=== PATIENT | female | born 1990 | race American Indian/Alaskan Native ===

== ENCOUNTER 2017-05-23 01:00 | Emergency (ER) | payer SELFPAY ==
[2017-05-23 02:14] LABS: Basophils % (Auto) 0.5 % (0.0-1.8); Eosinophils % (Auto) 0.9 % (0.0-4.3); Hematocrit 41.2 % (30.3-42.9); Hemoglobin 13.5 gm/dl (10.1-14.3); Mean Corpuscular HGB Conc 33 % (30-34); Mean Corpuscular Hemoglobin 28 pg (28-32); Mean Corpuscular Volume 85 fl (79-97); Platelet Count 395 K/mm3 (140-440); Red Blood Count 4.83 M/mm3 (3.65-5.03); Red Cell Distribution Width 14.1 % (13.2-15.2); White Blood Count 12.2 K/mm3 (4.5-11.0)
[2017-05-23 02:26] LABS: Alanine Aminotransferase 22 units/L (7-56); Albumin 4.1 g/dL (3.9-5); Albumin/Globulin Ratio 1.1 %; Alkaline Phosphatase 79 units/L (35-129); Anion Gap 13 mmol/L; BUN/Creatinine Ratio 12.85; Blood Urea Nitrogen 9 mg/dL (7-17); Calcium 9.6 mg/dL (8.4-10.2); Carbon Dioxide 34 mmol/L (22-30); Chloride 94.4 mmol/L (98-107); Glucose 114 mg/dL (65-100); Sodium 138 mmol/L (137-145); Total Protein 7.9 g/dL (6.3-8.2)
[2017-05-23 06:01] LABS: Bilirubin,Urine Negative (Negative)
[2017-05-23 06:02] LABS: Bacteria,Urine 1+ /HPF (Negative); Blood,Urine 1+ (Negative); Ketones,Urine 40 mg/dL (Negative); Leukocyte Esterase,Urine Negative (Negative); Nitrite,Urine Negative (Negative)
[2017-05-23] MEDS ORDERED: PROTONIX PO ONE (09:08)
[2017-05-23] MEDS ORDERED: REGLAN PO ONE (09:08)
--- NOTE | 2017-05-23 09:18 | Emergency Department Report ---
ED N/V/D HPI - General Chief complaint: Abdominal Pain Stated complaint: VOMITING BLOOD Time Seen by Provider: 05/23/17 09:06 Source: patient Mode of arrival: Ambulatory Limitations: No Limitations - History of Present Illness Initial comments: 27-year-old female 3 para 2 last menstrual period 05/07/2017 is present to the emergency department complaining of nausea vomiting and abdominal pain. Patient states onset of symptoms started 1 week prior. Initially emesis was food particles. Patient states prior to arrival she had multiple episodes of emesis in the last episode she noticed there was blood streaked. Patient states was a minimal amount of blood. Patient was abdominal pain. Patient states the pain is located in the left upper quadrant and travels towards periumbilical area. Patient denies: fever/chills, chest pain, diarrhea, vaginal discharge, vaginal bleeding. MD complaint: nausea, vomiting -: Gradual, days(s) (7) Description of Vomiting: food contents, blood-streaked Associated Abdominal Pain: Yes Location: [place] Severity: mild Pain Scale: 1 Quality: cramping Consistency: intermittent Improves with: none Worsens with: none Associated Symptoms: denies other symptoms, nausea/vomiting. denies: myalgias, chest pain, cough, diaphoresis, headaches, malaise - Related Data Allergies Allergy/AdvReac Type Severity Reaction Status Date / Time No Known Allergies Allergy Verified 05/23/17 01:37 ED Review of Systems ROS: Stated complaint: VOMITING BLOOD Other details as noted in HPI Constitutional: denies: chills, fever Eyes: denies: eye pain, eye discharge, vision change ENT: denies: ear pain, throat pain Respiratory: denies: cough, shortness of breath, wheezing Cardiovascular: denies: chest pain, palpitations Endocrine: no symptoms reported Gastrointestinal: abdominal pain, vomiting. denies: nausea, diarrhea, constipation, hematemesis Genitourinary: abnormal menses. denies: urgency, dysuria, discharge Musculoskeletal: denies: back pain, joint swelling, arthralgia Skin: denies: rash, lesions Neurological: denies: headache, weakness, paresthesias Psychiatric: denies: anxiety, depression Hematological/Lymphatic: denies: easy bleeding, easy bruising ED Past Medical Hx - Past Medical History Previous Medical History?: No - Surgical History Past Surgical History?: Yes Hx Cholecystectomy: Yes - Social History Smoking Status: Unknown if ever smoked Substance Use Type: None ED Physical Exam - General Limitations: No Limitations General appearance: alert, in no apparent distress - Head Head exam: Present: atraumatic, normocephalic - Eye Eye exam: Present: normal appearance - ENT ENT exam: Present: mucous membranes moist - Neck Neck exam: Present: normal inspection - Respiratory Respiratory exam: Present: normal lung sounds bilaterally. Absent: respiratory distress - Cardiovascular Cardiovascular Exam: Present: regular rate, normal rhythm. Absent: systolic murmur, diastolic murmur, rubs, gallop - GI/Abdominal GI/Abdominal exam: Present: soft, normal bowel sounds. Absent: distended, tenderness, guarding, rebound, hyperactive bowel sounds, hypoactive bowel sounds , organomegaly, bruit, pulsatile mass (abdomen soft) - External exam: Present: normal external exam Speculum exam: Absent: erythema, vaginal discharge, cervical discharge, vaginal bleeding, tissue Bi-manual exam: Present: normal bi-manual exam. Absent: cervical motion tendernes, adnexal tenderness, adnexal mass, uterine enlargement, uterine tenderness - Extremities Exam Extremities exam: Present: normal inspection - Back Exam Back exam: Present: normal inspection - Neurological Exam Neurological exam: Present: alert, oriented X3 - Psychiatric Psychiatric exam: Present: normal affect, normal mood - Skin Skin exam: Present: warm, dry, intact, normal color. Absent: rash ED Course Vital Signs 05/23/17 05/23/17 05/23/17 01:37 05:00 11:00 Temperature 98.5 F 98.6 F 97.6 F Pulse Rate 91 H 86 86 Respiratory 18 16 20 Rate Blood Pressure 134/83 125/91 Blood Pressure 126/70 [Right] O2 Sat by Pulse 98 100 99 Oximetry - Reevaluation(s) Reevaluation #1: 05/23/17 10:25 Patient resting comfortably Reevaluation #2: 05/23/17 11:29 Patient informed of her subchorionic hemorrhage and has been given a copy of ultrasound to follow up with OB. ED Medical Decision Making - Lab Data Result diagrams: 05/23/17 01:47 05/23/17 01:47 - Medical Decision Making 27-year-old female with no past medical history has presented to the ED complaining of nausea/vomiting and pelvic pain. Likely symptoms are secondary to earlu . I have low suspicion for acute pathology such as: Appendicitis, ovarian torsion, PID. Patient states symptoms have improved with the medications in the ED she is stable to discharge home. Patient tolerating by mouth, repeat abdominal exam soft nontender, and she agrees she'll follow up with [facility]. Patient verbalized understanding of return precautions. Critical Care Time: No Critical care attestation.: If time is entered above; I have spent that time in minutes in the direct care of this critically ill patient, excluding procedure time. ED Disposition Clinical Impression: Nausea & vomiting, Abdominal pain, Early stage of Disposition: DC- TO HOME OR SELFCARE Is pt being admited?: No Does the pt Need Aspirin: No Condition: Stable Instructions: Abdominal Pain (ED) Referrals: PRIMARY CARE, [Primary Care Provider] - 3-5 Days JONY COLLINS MD [Staff Physician] - 3-5 Days Forms: Work/School Release Form(ED) Time of Disposition: 11:30
--- NOTE | 2017-05-23 10:54 | Ultrasound Report ---
Pelvic and transvaginal sonography: History: Pelvic pain. Findings: Uterus measures 10.7 x 6.5 x 6.5 cm. Single viable intrauterine gestation is noted. Gestational sac diameter 24.9 mm corresponding to 7 weeks and 4 days of gestation. CRL 5.2 mm corresponding to 6 weeks and 2 days of gestation. heart rate 118 per minute. Small subchorionic bleed. Right ovary 2.5 x 2 x 2.8 cm. Complex cyst in the right ovary measures 1.2 cm. Left ovary 3 x 2.2 x 2.5 cm. Cyst in the left ovary measures 0.9 cm. Impression: Single viable intrauterine gestation. Small subchorionic bleed. Cyst right and left ovary.
[2017-05-23 12:32] VITALS: BP 122/70
== END 2017-05-23 12:33 | disposition home or self-care (01) ==
LOC: ED 01:00
DX: O21.9 Vomiting of pregnancy, unspecified (principal); R11.0 Nausea; R10.9 Unspecified abdominal pain; Z3A.01 Less than 8 weeks gestation of pregnancy
CPT/HCPCS: 36415; 76801; 76817; 80053; 81001; 84702; 84703; 85025; 87210; 87591